=== PATIENT | female | born 1960 | race Caucasian/White ===

== ENCOUNTER 2022-02-17 10:44 | Outpatient (CLI) | payer OTHER | END 2022-02-17 10:45 | disposition home or self-care (01) | LOC: LAB 10:44 | PROVIDERS: ATTEND Family Medicine | DX: Z00.01 Encounter for general adult medical examination with abnormal findings (principal); E55.9 Vitamin D deficiency, unspecified; E53.9 Vitamin B deficiency, unspecified; Z13.220 Encounter for screening for lipoid disorders; E07.89 Other specified disorders of thyroid; E66.3 Overweight ==

== ENCOUNTER 2022-02-24 08:58 | Outpatient (CLI) | payer OTHER | END 2022-02-24 09:11 | disposition home or self-care (01) | LOC: RAD 08:58 | PROVIDERS: ATTEND Family Medicine | DX: M25.551 Pain in right hip (principal); Z12.31 Encounter for screening mammogram for malignant neoplasm of breast; N94.12 Deep dyspareunia ==

== ENCOUNTER 2023-12-08 09:39 | Outpatient (CLI) | payer OTHER ==
[2023-12-08 11:11] LABS: PH,URINE 5.5 (5.0-8.0); URINE APPEARANCE Clear; URINE BILIRRUBIN Negative (NEGATIVE); URINE BLOOD Moderate; URINE COLOR Yellow; URINE GLUCOSE Negative (NEGATIVE); URINE KETONE Negative (NEGATIVE); URINE LEUKOCYTE Negative; URINE NITRATE Negative; URINE PROTEIN Negative (NEGATIVE); URINE UROBILINOGEN 0.2 E.U./dl
[2023-12-08 11:14] LABS: HEMATOCRIT 37.7 % (36.0-45.00); HEMOGLOBIN 12.8 g/dL (12.0-15.00); MEAN CELL VOLUME 88.1 fL (80.00-100.00); MEAN CORPUSCULAR HEMOGLOBIN 29.9 pg (27.00-32.0); MEAN CORPUSCULAR HGB CONC 33.9 g/dl (32.0-36.0); PLATELET COUNT 208 K/uL (150-450); RED BLOOD COUNT 4.29 M/uL (4.00-6.00); RED CELL DISTRIBUTION WIDTH 13.4 % (11.5-14.5)
[2023-12-08 11:16] LABS: URINE BACTERIA 27.7 uL (0.0-1933); URINE EPITHELIAL CELLS 3.3 uL (0.0-38.8); URINE WBC 2.1 uL (0.0-23.2)
[2023-12-08 11:29] LABS: ERYTHROCYTE SEDIMENTATION RATE 6 mm/hr
[2023-12-08 11:50] LABS: ALKALINE PHOSPHATASE 67 U/L (50-136); ALT/SGPT 17 U/L (12-78); ANION GAP 9 (10.0-20.0); AST/SGOT 13 U/L (15-37); BILIRUBIN TOTAL 0.93 mg/dL (0.3-1.2); BLOOD UREA NITROGEN 21 mg/dL (7-18); BUN CREA RATIO 26 (7.0-25.0); C-REACTIVE PROTEIN < 0.29 MG/DL (0.00-0.29); CALCIUM 8.9 mg/dL (8.5-10.1); CARBON DIOXIDE 28 mEq/L (21-32); CHLORIDE 111 mmol/L (98-107); CHOL HDL RATIO 2.5 (0-5.0); CHOLESTEROL 176 mg/dL (0-200); CREATININE SERUM 0.82 mg/dL (0.55-1.02); GFR 70.64; GLOBULINA 3.1 G/DL (2.4-3.5); GLUCOSE FASTING 79 mg/dL (65-100); HDL 70 mg/dl (40-60); LDL 95 mg/dl (0-130); OSMOLALITY SERUM 289 MOSM/KG (275-295); POTASSIUM 4.27 mEq/L (3.5-5.1); SODIUM 144 mmol/L (136-145); TOTAL PROTEIN 7.1 gm/dL (6.4-8.2); TRIGLYCERIDES 53 mg/dL (0-150); VLDL 10 (0-39)
[2023-12-08 12:11] LABS: VITAMIN D3 25 HYDROXY 39.17 ng/ml (30-120)
== END 2023-12-08 09:40 | disposition home or self-care (01) ==
LOC: LAB 09:39
PROVIDERS: ATTEND Family Medicine
DX: E78.3 Hyperchylomicronemia (principal); E55.9 Vitamin D deficiency, unspecified; E53.9 Vitamin B deficiency, unspecified; E07.89 Other specified disorders of thyroid; E66.3 Overweight; N30.00 Acute cystitis without hematuria; D50.9 Iron deficiency anemia, unspecified

== ENCOUNTER 2023-12-08 10:35 | Outpatient (CLI) | payer OTHER | END 2023-12-08 10:45 | disposition home or self-care (01) | LOC: MRI 10:35 | PROVIDERS: ATTEND Family Medicine | DX: G44.52 New daily persistent headache (NDPH) (principal) | CPT/HCPCS: 70551 ==